=== PATIENT | female | born 1990 | race Caucasian/White ===

== ENCOUNTER → 2023-09-11 14:53 | Outpatient (REF) | payer BC, SELFPAY | LOC: PNTC 14:53 | PROVIDERS: ATTENDING PHYSICIAN Obstetrics & Gynecology | DX: O30.049 Twin pregnancy, dichorionic/diamniotic, unspecified trimester (principal) | CPT/HCPCS: 59025; 76816 ==

== ENCOUNTER → 2023-09-18 14:52 | Outpatient (REF) | payer BC, SELFPAY | LOC: PNTC 14:52 | PROVIDERS: ATTENDING PHYSICIAN Obstetrics & Gynecology | DX: O30.049 Twin pregnancy, dichorionic/diamniotic, unspecified trimester (principal) | CPT/HCPCS: 59025; 76815 ==

== ENCOUNTER → 2023-10-02 11:32 | Outpatient (REF) | payer BC, SELFPAY | LOC: CLAB 11:32 | PROVIDERS: ATTENDING PHYSICIAN Obstetrics & Gynecology | DX: Z34.90 Encounter for supervision of normal pregnancy, unspecified, unspecified trimester (principal) | CPT/HCPCS: 87070 ==

== ENCOUNTER → 2023-10-02 14:56 | Outpatient (REF) | payer BC, SELFPAY | LOC: PNTC 14:56 | PROVIDERS: ATTENDING PHYSICIAN Obstetrics & Gynecology | DX: O30.049 Twin pregnancy, dichorionic/diamniotic, unspecified trimester (principal) | CPT/HCPCS: 59025; 76815 ==

== ENCOUNTER → 2023-10-09 15:00 | Outpatient (REF) | payer BC, SELFPAY | LOC: PNTC 15:00 | PROVIDERS: ATTENDING PHYSICIAN Obstetrics & Gynecology | DX: O30.049 Twin pregnancy, dichorionic/diamniotic, unspecified trimester (principal) | CPT/HCPCS: 59025; 76816 ==

== ENCOUNTER 2023-10-16 05:07 | Inpatient (IN) | payer BC, SELFPAY ==
[2023-10-16 05:24] VITALS: BMI 33.3
[2023-10-16 05:50] VITALS: BP 122/80
[2023-10-16 06:15] LABS: Hemoglobin 11.7 g/dL (12.0-16.0); Mean Corp Hgb Conc. 35.5 g/dL (33.0-37.0); Mean Corpuscular Hgb 30.7 pg (27.0-31.0); Mean Corpuscular Volume 86.6 fL (81.0-99.0); Mean Platelet Volume 11.5 fL (7.4-10.4); Platelet Count 162 10^3/uL (130-400); Red Blood Cell Count 3.81 10^6/uL (4.20-5.40)
[2023-10-16] MEDS: TYLENOL 1000 MG PO (07:04)
[2023-10-16] MEDS: ANCEF 10 IV (07:05)
[2023-10-16] MEDS: BICITRA 30 ML PO (07:05)
[2023-10-16] MEDS: PITOCIN 30 UNITS/NSS 500 ML IV (08:12)
[2023-10-16] MEDS: TORADOL 15 MG IV ×2 (14:51→21:04)
[2023-10-16] MEDS: PRENATAL PLUS 1 TABLET PO (22:41)
[2023-10-17] MEDS: TORADOL 15 MG IV ×2 (03:19→09:17)
[2023-10-17 06:07] LABS: Hematocrit 27.7 % (37.0-47.0); Hemoglobin 9.6 g/dL (12.0-16.0); Mean Corp Hgb Conc. 34.7 g/dL (33.0-37.0); Mean Corpuscular Hgb 30.6 pg (27.0-31.0); Mean Corpuscular Volume 88.2 fL (81.0-99.0); Mean Platelet Volume 12.5 fL (7.4-10.4); Platelet Count 175 10^3/uL (130-400); Red Blood Cell Count 3.14 10^6/uL (4.20-5.40); Red Cell Dist. Width 12.9 % (11.5-14.5); White Blood Cell Count 8.4 10^3/uL (4.8-10.8)
--- NOTE | 2023-10-17 07:17 | W.PN.ANS.POP ---
Anesthesia Post Operative
- Anesthesia Post Op Note
Vital Signs Stable-See Nursing Note: Yes
Airway Patent: Yes
Adequate Pain Control: Yes
Change in Mental Status: No
Current Postoperative Nausea & Vomiting: No
Anesthesia Complications: No
General Anesthetic Recall: No
Unplanned Admission: No
Post Op Hydration Adequate: Yes
[2023-10-17] MEDS: SENOKOT-S 1 TABLET PO (08:07)
[2023-10-17] MEDS: TYLENOL 650 MG PO ×4 (08:07→23:24)
[2023-10-17] MEDS: MYLICON 80 MG PO ×3 (08:08→19:22)
[2023-10-17] MEDS: MOTRIN 600 MG PO ×2 (14:53→23:23)
[2023-10-17] MEDS: PRENATAL PLUS 1 TABLET PO (19:22)
[2023-10-18] MEDS: PERCOCET 5/325 1 TABLET PO (04:37)
[2023-10-18] MEDS: FEOSOL 325 MG PO (08:29)
[2023-10-18] MEDS: MYLICON 80 MG PO (08:29)
[2023-10-18] MEDS: TYLENOL 650 MG PO ×3 (08:36→22:05)
[2023-10-18] MEDS: MOTRIN 600 MG PO ×3 (08:37→22:05)
[2023-10-18] MEDS: SENOKOT-S 1 TABLET PO (08:49)
[2023-10-18] MEDS: PRENATAL PLUS 1 TABLET PO (22:05)
[2023-10-19] MEDS: MOTRIN 600 MG PO ×2 (04:28→09:52)
[2023-10-19] MEDS: TYLENOL 650 MG PO ×2 (04:28→09:52)
[2023-10-19] MEDS: PRENATAL PLUS 1 TABLET PO (09:51)
[2023-10-19] MEDS: FEOSOL 325 MG PO (09:52)
[2023-10-19] MEDS: SENOKOT-S 1 TABLET PO (09:54)
--- NOTE | 2023-10-19 11:54 | W.DS.TRANS ---
DC Summary - [facility]
-
Discharge Instructions:
Discharge Diagnosis/Procedures primary cs
Instructions:
Stand-Alone Forms: LDRP Delivery
Changes to Home Medications: No
Discharge Medications:
DC Medications w/original date entered in [employer]
prenat.vits,charley,rto-laek-kvpog 1 tab PO HS 10/16/23
ibuprofen 600 mg tablet 600 mg PO Q6HPRN PRN cramps #90 tabs 10/19/23
Home Medication Changes
Pending Results: No
[2023-10-19 17:18] LABS: Syphilis/T. pallidum Ab Reflex Negative (Negative)
== END 2023-10-19 15:45 | disposition home or self-care (01) | DRG 788 ==
LOC: LDRP 05:07
PROVIDERS: ADMITTING PHYSICIAN Obstetrics & Gynecology; FAMILY PHYSICIAN Physician Assistant Medical
PROC: 10D00Z1 Extraction of Products of Conception, Low, Open Approach (ICD-10-PCS; 2023-10-16)
DX: O32.1XX1 Maternal care for breech presentation, fetus 1 (principal); O32.1XX2 Maternal care for breech presentation, fetus 2; O99.02 Anemia complicating childbirth; D64.9 Anemia, unspecified; O30.043 Twin pregnancy, dichorionic/diamniotic, third trimester; Z3A.38 38 weeks gestation of pregnancy; Z37.2 Twins, both liveborn
CPT/HCPCS: 88307; 36415; 85027; 86780; 86850; 86900; 86901

== ENCOUNTER → 2024-04-11 06:20 | Outpatient (REF) | payer BC, SELFPAY ==
[2024-04-11 06:54] LABS: % Basophils 0.5 % (0-2); % Eosinophils 1.4 % (0-6); % Immature Granulocytes 0.5 % (0-0.5); % Lymphocytes 30.9 % (20.5-51.1); % Monocytes 5.9 % (1.7-9.3); % Neutrophils 60.8 % (42.2-75.2); Absolute Eosinophils 0.1 10^3/uL (0-0.7); Absolute Lymphocytes 1.4 10^3/uL (1.2-3.4); Absolute Monocytes 0.3 10^3/uL (0.1-0.6); Absolute Neutrophils 2.7 10^3/uL (1.4-6.5); Hematocrit 39.1 % (37.0-47.0); Hemoglobin 13.7 g/dL (12.0-16.0); Mean Corpuscular Hgb 30.4 pg (27.0-31.0); Mean Corpuscular Volume 86.7 fL (81.0-99.0); Mean Platelet Volume 10.9 fL (7.4-10.4); Nucleated Red Blood Cells % 0 %; Platelet Count 266 10^3/uL (130-400); Red Blood Cell Count 4.51 10^6/uL (4.20-5.40); Red Cell Dist. Width 12.1 % (11.5-14.5); White Blood Cell Count 4.4 10^3/uL (4.8-10.8)
[2024-04-11 07:15] LABS: ALT (SGPT) 24 U/L (0-35); AST (SGOT) 31 U/L (14-36); Albumin 4.6 g/dl (3.5-5.0); Alkaline Phosphatase 65 U/L (38-126); Blood Urea Nitrogen 15 mg/dl (7-17); Calcium 9.9 mg/dl (8.4-10.2); Carbon Dioxide 29 mmol/L (22-30); Chloride 102 mmol/L (98-107); Glucose 100 mg/dl (70-99); HDL Cholesterol 44 mg/dl; Iron 90 ug/dl (37-170); LDL Cholesterol, Calculated 190 mg/dl; Potassium 4.1 mmol/L (3.5-5.1); Sodium 142 mmol/L (135-145); Total Bilirubin 0.9 mg/dl (0.2-1.3); Total Cholesterol 255 mg/dl (50-199); Total Protein 7.6 g/dl (6.3-8.2); Triglyceride 109 mg/dl (10-149); Very Low Density Lipoprotein 21 mg/dl (0-30); eGFR > 60.00
[2024-04-11 07:24] LABS: Percent Saturation 31 % (20-50); Total Iron Binding Capacity 288 ug/dl (265-497)
[2024-04-11 07:32] LABS: Free T4 1.06 ng/dl (0.78-2.19)
[2024-04-11 07:46] LABS: TSH 1.72 uIU/ml (0.47-4.68)
[2024-04-11 07:50] LABS: Ferritin 11.2 ng/ml (6.24-137)
== END ==
LOC: REG 06:20
PROVIDERS: ATTENDING PHYSICIAN Physician Assistant Medical
DX: Z00.00 Encounter for general adult medical examination without abnormal findings (principal); E78.2 Mixed hyperlipidemia; R79.89 Other specified abnormal findings of blood chemistry; Z86.2 Personal history of diseases of the blood and blood-forming organs and certain disorders involving the immune mechanism
CPT/HCPCS: 36415; 80053; 80061; 82728; 83540; 83550; 84439; 84443; 85025

== ENCOUNTER → 2024-11-25 08:37 | Outpatient (REF) | payer OTHER, SELFPAY | LOC: HWRAD 08:37 | PROVIDERS: ATTENDING PHYSICIAN Nurse Practitioner Family; FAMILY PHYSICIAN Physician Assistant Medical | DX: Z30.431 Encounter for routine checking of intrauterine contraceptive device (principal) | CPT/HCPCS: 76830; 76856 ==

== ENCOUNTER → 2024-11-28 09:54 | Outpatient (REF) | payer OTHER, SELFPAY | LOC: RAD 09:54 | PROVIDERS: ATTENDING PHYSICIAN Obstetrics & Gynecology | DX: T83.32XS Displacement of intrauterine contraceptive device, sequela (principal) | CPT/HCPCS: 72170; 74018 ==